=== PATIENT | female | born 1950 | race Caucasian/White ===

== ENCOUNTER 2016-09-10 13:04 | Inpatient (IN) | payer MEDICARE, OTHER ==
[~2016-09-10] VITALS: Ht 180.3 cm; Wt 150.0 kg
[~2016-09-10 13:04] MED LIST: FLUO10CA66
[2016-09-10 13:07] VITALS: Ht 180.3 cm; Wt 150.0 kg
--- NOTE | 2016-09-10 13:47 | ERA ---
ER Documentation Chief Complaint Date/Time DATE: 09/10/16 TIME: 13:46 Chief Complaint left leg swelling and redness after a cat scrath HPI The patient is a 76-year-old female, presenting to the ER because of acute left leg redness and pain after her cat scratched her yesterday. She complains of fever, vomiting, denies neck pain, chest pain, dysuria, diarrhea, abdominal pain. She denies any other injury. She does not smoke nor drink Past medical history: Asthma, depression, hypertension, osteoarthritis Past surgical history: Bilateral knee replacement ROS All systems reviewed and are negative except as per history of present illness. Medications Home Meds Reported Medications Fluoxetine Hcl* (Fluoxetine Hcl*) 20 Mg Capsule, 20 MG PO BID, CAP 09/10/16 Losartan Potassium* (Losartan Potassium*) 100 Mg Tablet, 100 MG PO DAILY, TAB 09/10/16 Amlodipine Besylate* (Norvasc*) 5 Mg Tablet, 5 MG PO DAILY, TAB 09/10/16 Chlorthalidone* (Chlorthalidone*) 25 Mg Tablet, 25 MG PO DAILY, TAB 09/10/16 Discontinued Reported Medications Fluoxetine Hcl* (Prozac*) 10 Mg Capsule 02/18/10 Allergies Allergies: Coded Allergies: Acetaminophen (Unverified Allergy, Unknown, 03/26/06) Oxycodone (Unverified Allergy, Unknown, 03/26/06) Uncoded Allergies: CHEAP METALS (Allergy, Mild, RASH, 03/26/06) PMhx/Soc History of Surgery: Yes (B KNEE REPLACEMENTS) Anesthesia Reaction: No Hx Neurological Disorder: No Hx Respiratory Disorders: Yes (ASTHMA) Hx Cardiac Disorders: No Hx Psychiatric Problems: Yes (DEPRESSION) Hx Miscellaneous Medical Probl: Yes (Osteoarthritis, HTN.) Hx Alcohol Use: Yes Hx Substance Use: No Hx Tobacco Use: No Smoking Status: Never smoker Physical Exam Vitals Vital Signs Date Time Temp Pulse Resp B/P Pulse Ox O2 Delivery O2 Flow Rate FiO2 09/10/16 13:07 100.8 104 20 129/66 99 Physical Exam Const: No acute distress. Head: Atraumatic. Eyes: Normal Conjunctiva. ENT: Normal External Ears, Nose and Mouth. Neck: Full range of motion. No meningismus. Resp: Clear to auscultation bilaterally. Cardio: Regular rate and rhythm. Abd: Soft, non distended, normal bowel sounds, non tender. Skin: No petechiae or rashes. Back: No midline or flank tenderness. Ext: Left lower extremity is erythematous, warm to touch, mild calf tenderness Neur: Awake and alert. No focal deficit Psych: Normal Mood and Affect. Result Diagram: 09/10/16 1345 09/10/16 1345 Results 24 hrs Laboratory Tests Test 09/10/16 13:45 White Blood Count 16.210^3/ul Red Blood Count 4.4310^6/ul Hemoglobin 14.8g/dl Hematocrit 43.4% Mean Corpuscular Volume 98.0fl Mean Corpuscular Hemoglobin 33.4pg Mean Corpuscular Hemoglobin Concent 34.1g/dl Red Cell Distribution Width 13.0% Platelet Count 12832^3/UL Mean Platelet Volume 9.8fl Neutrophils % 91.3% Lymphocytes % 2.8% Monocytes % 4.9% Eosinophils % 0.1% Basophils % 0.2% Nucleated Red Blood Cells % 0.0/100WBC Neutrophils # 14.810^3/ul Lymphocytes # 0.510^3/ul Monocytes # 0.810^3/ul Eosinophils # 0.010^3/ul Basophils # 0.010^3/ul Nucleated Red Blood Cells # 0.010^3/ul Prothrombin Time 13.1Sec Prothrombin Time Ratio 1.0 INR International Normalized Ratio 0.99 Activated Partial Thromboplast Time 26.4Sec Sodium Level 140mmol/L Potassium Level 3.7mmol/L Chloride Level 99mmol/L Carbon Dioxide Level 32mmol/L Anion Gap 13 Blood Urea Nitrogen 24mg/dl Creatinine 0.69mg/dl Glucose Level 140mg/dl Lactic Acid Level 2.3mmol/L Calcium Level 9.1mg/dl Total Bilirubin 0.6mg/dl Direct Bilirubin 0.00mg/dl Indirect Bilirubin 0.6mg/dl Aspartate Amino Transf (AST/SGOT) 32IU/L Alanine Aminotransferase (ALT/SGPT) 45IU/L Alkaline Phosphatase 65IU/L Troponin I < 0.012ng/ml Total Protein 6.9g/dl Albumin 4.3g/dl Globulin 2.60g/dl Albumin/Globulin Ratio 1.65 Current Medications Medications (Trade) Dose Ordered Sig/Radha Route PRN Reason Start Time Stop Time Status Last Admin Dose Admin Ibuprofen 600 mg 600 mg ONCE ONCE PO 09/10/16 14:00 09/10/16 14:01 DC 09/10/16 14:05 Azithromycin 250 ml @ 250 mls/hr ONCE ONCE IVPB 09/10/16 14:00 09/10/16 14:59 DC 09/10/16 14:10 Vancomycin HCl 250 ml @ 125 mls/hr ONCE IVPB 09/10/16 14:00 09/10/16 15:59 Sodium Chloride (NS) 4,650 ml @ 4,650 mls/hr BOLUS X1 ONCE IV 09/10/16 15:00 09/10/16 15:59 09/10/16 15:00 Procedures/MDM [place] [id number] Radiology Main Line: [phone] DIAGNOSTIC IMAGING REPORT Patient: GERARDO PEOPLES : 1950 Age: 66 Sex: F MR #: [id number] DOS: 09/10/16 1351 Ordering MD: ANTOLIN HARRINGTON MD Location: E/R Room/Bed: PROCEDURE: XR Chest. CLINICAL INDICATION: Chest pain TECHNIQUE: Single portable view of the chest was obtained COMPARISON: None FINDINGS: The heart and mediastinum are within normal limits. The lung bases are not well seen due to overlying dense soft tissue. There are mild bibasilar atelectatic changes. The lungs are otherwise clear. There is no pleural effusion or pneumothorax. RPTAT: AA IMPRESSION: Mild bibasilar atelectatic changes. .Zain Paredes MD, Date Time Electronically viewed and signed by .Zain Paredes MD, on 09/10/2016 14: 30 .S/ CC: ANTOLIN HARRINGTON MD [place] [id number] Radiology Main Line: [phone] DIAGNOSTIC IMAGING REPORT Patient: GERARDO PEOPLES : 1950 Age: 66 Sex: F [id number] [id number] DOS: 09/10/16 1352 Ordering MD: ANTOLIN HARRINGTON MD Location: E/R Room/Bed: PROCEDURE: Ultrasound of the left lower extremity venous system. CLINICAL INDICATION: Left leg pain and swelling, deep venous thrombosis TECHNIQUE: Nichols scale with and without compression, color doppler, spectral doppler of the venous system of the left lower extremity was performed. Venous augmentation maneuvers were utilized. COMPARISON: No prior studies are available for comparison. FINDINGS: Common femoral vein: Patent. Femoral vein: Patent. Popliteal vein: Patent. Calf veins: Patent. No soft tissue abnormalities are identified. IMPRESSION: No evidence of a deep vein thrombosis within the left lower extremity. RPTAT: AADD .Tariq Bernard MD, Date Time Electronically viewed and signed by .aTriq Bernard MD, MD on 09/10/2016 14:59 .B/ CC: ANTOLIN HARRINGTON MD EKG: Read by emergency physician Rate/Rhythm: Normal Sinus Rhythm 89 beats/min QRS, ST, T-waves: No ST elevation, no T inversion, nonspecific ST abnormality Impression: Abnormal EKG MEDICAL MAKING DECISION: The patient is a 66-year-old female, presenting with acute severe sepsis, acute left leg cellulitis. She was treated with normal saline 30 mL/kg IV, vancomycin IV, azithromycin IV to cover Bartonella Hensella due to cat scratches The differential diagnoses considered include but are not limited to pneumonia, cystitis, pyelonephritis Admit MDM: Patient's infectious symptoms have not stabilized and the patient is at risk of rapid decompensation. The patient will be admitted for careful hydration, antibiotic therapy, and infectious source control. Severe Sepsis criteria: Infectious source: Left leg cellulitis End organ damage indicated by: Lactate > 2.0 mmol/L Hypotension (SBP < 90 or >40 mmHG drop or MAP < 65) Acute Resp Failure (sat < 92% w/o oxygen) Country Printer > 2.0 Sepsis Management: Time of recognition of severe sepsis/septic shock:1345 hrs. Within 3 hours of recognition: Blood cultures x 2 before broad-spectrum antibiotics: Yes 30 ml/kg NS bolus completed Initial lactate 2.3 Repeat lactate pending Critical Care: Critical care time 35 minutes Emergent fluid management while maintaining close respiratory support. Provision of immediate and broad-spectrum antibiotic therapy. Simultaneous assessment for possible sources in order to direct targeted therapy. Consideration for invasive and chemical support to prevent cardiopulmonary collapse. Departure Diagnosis: Primary Impression: Severe sepsis Additional Impression: Cellulitis Condition: Stable Comments I discussed the findings with the patient. I discussed the patient with the on- call hospitalist Dr. Harp who was made aware of the lab, the treatment, the patient condition. The patient is admitted to discharge at 325 pm ANTOLIN HARRINGTON MD Sep 10, 2016 13:46
[2016-09-10] MEDS ORDERED: AZITHROMYCIN 500MG/NS (PMX) 250 ML IVPB ONE (14:00)
[2016-09-10] MEDS ORDERED: IBUPROFEN 600 MG TAB PO ONE (14:00)
[2016-09-10] MEDS ORDERED: VANCOMYCIN 1 GM (PMX) 250 ML IVPB SCH (14:00)
[2016-09-10 14:04] LABS: ADD SCAN DIFF NO
[2016-09-10 14:05] LABS: ABNORMAL IP MESSAGE 1; BASOPHILS % 0.2 % (0.0-2.0); EOSINOPHILS % 0.1 % (0.0-7.0); HEMATOCRIT 43.4 % (37.0-47.0); HEMOGLOBIN 14.8 g/dl (12.0-16.0); LYMPHOCYTES # 0.5 10^3/ul (0.8-2.9); LYMPHOCYTES % 2.8 % (15.0-51.0); MEAN CORPUSCULAR HEMOGLOBIN 33.4 pg (29.0-33.0); MEAN CORPUSCULAR HGB CONC 34.1 g/dl (32.0-37.0); MEAN PLATELET VOLUME 9.8 fl (7.4-10.4); MONOCYTE # 0.8 10^3/ul (0.3-0.9); MONOCYTES % 4.9 % (0.0-11.0); NEUTROPHIL # 14.8 10^3/ul (1.6-7.5); NEUTROPHILS % 91.3 % (39.0-77.0); PLATELET COUNT 156 10^3/UL (140-415); RED BLOOD COUNT 4.43 10^6/ul (4.20-5.40); WHITE BLOOD COUNT 16.2 10^3/ul (4.8-10.8)
[2016-09-10 14:23] LABS: ALANINE AMINOTRANSFERASE 45 IU/L (13-69); ALBUMIN 4.3 g/dl (3.3-4.9); ALBUMIN/GLOBULIN RATIO 1.65; ALKALINE PHOSPHATASE 65 IU/L (42-121); ANION GAP 13 (8-16); ASPARTATE AMINO TRANSFERASE 32 IU/L (15-46); BILIRUBIN,INDIRECT 0.6 mg/dl (0-1.1); BILIRUBIN,TOTAL 0.6 mg/dl (0.2-1.3); BLOOD UREA NITROGEN 24 mg/dl (7-20); CALCIUM 9.1 mg/dl (8.4-10.2); CARBON DIOXIDE 32 mmol/L (21-31); CHLORIDE 99 mmol/L (97-110); CREATININE 0.69 mg/dl (0.44-1.00); GLUCOSE 140 mg/dl (70-220); POTASSIUM 3.7 mmol/L (3.5-5.1); SODIUM 140 mmol/L (135-144); TOTAL PROTEIN 6.9 g/dl (6.1-8.1)
[2016-09-10 14:27] LABS: INR 0.99; PROTIME 13.1 Sec (12.2-14.2)
[2016-09-10 14:28] LABS: PARTIAL THROMBOPLASTIN TIME 26.4 Sec (25.0-35.0)
--- NOTE | 2016-09-10 14:30 | RADRPT ---
PROCEDURE: XR Chest. CLINICAL INDICATION: Chest pain TECHNIQUE: Single portable view of the chest was obtained COMPARISON: None FINDINGS: The heart and mediastinum are within normal limits. The lung bases are not well seen due to overlying dense soft tissue. There are mild bibasilar atelectatic changes. The lungs are otherwise clear. There is no pleural effusion or pneumothorax. RPTAT: AA IMPRESSION: Mild bibasilar atelectatic changes. .Zain Paredes MD, MD Date Time Electronically viewed and signed by .Zain Paredes MD, on 09/10/2016 14:30 .S/
[2016-09-10 14:35] LABS: TROPONIN-I < 0.012 ng/ml (0.00-0.12)
[2016-09-10] MEDS ORDERED: CHLO25TA13 PO (14:59)
--- NOTE | 2016-09-10 14:59 | RADRPT ---
PROCEDURE: Ultrasound of the left lower extremity venous system. CLINICAL INDICATION: Left leg pain and swelling, deep venous thrombosis TECHNIQUE: Nichols scale with and without compression, color doppler, spectral doppler of the venous system of the left lower extremity was performed. Venous augmentation maneuvers were utilized. COMPARISON: No prior studies are available for comparison. FINDINGS: Common femoral vein: Patent. Femoral vein: Patent. Popliteal vein: Patent. Calf veins: Patent. No soft tissue abnormalities are identified. IMPRESSION: No evidence of a deep vein thrombosis within the left lower extremity. RPTAT: AADD .Tariq Bernard MD, MD Date Time Electronically viewed and signed by .Tariq Bernard MD, on 09/10/2016 14:59 .B/
[2016-09-10] MEDS ORDERED: SOD CHLORIDE 0.9% IV ONE (15:00)
[2016-09-10] MEDS ORDERED: AMLO5TAB4 PO (15:02)
[2016-09-10] MEDS ORDERED: LOSA100T7 PO (15:06)
[2016-09-10] MEDS ORDERED: FLUO20CA22 PO (15:07)
[2016-09-10 15:53] VITALS: TEMP 98.7
[2016-09-10 16:06] LABS: ADD UMIC NO; UR BILIRUBIN (Dip) NEGATIVE (NEGATIVE); UR BLOOD (Dip) NEGATIVE (NEGATIVE); UR CLARITY CLEAR (CLEAR); UR COLOR LT. YELLOW (YELLOW); UR GLUCOSE (Dip) NEGATIVE (NEGATIVE); UR KETONES (Dip) NEGATIVE (NEGATIVE); UR LEUKOCYTE ESTERASE (Dip) NEGATIVE (NEGATIVE); UR NITRITE (Dip) NEGATIVE (NEGATIVE); UR TOTAL PROTEIN (Dip) NEGATIVE (NEGATIVE); UR UROBILINOGEN (Dip) 0.2 E.U./dL (0.1-1.0)
[2016-09-10 16:51] VITALS: BP 133/79; PULSE 88; RESP 18
[2016-09-10] MEDS ORDERED: VANCOMYCIN IV PER PHARMACY XX SCH (18:00)
[2016-09-10] MEDS ORDERED: morphine 4 MG/ML VIAL IV PRN (18:00)
[2016-09-10] MEDS ORDERED: ONDANSETRON 4 MG INJ IV PRN (18:00)
[2016-09-10] MEDS: LEVOFLOXACIN 750MG/D5W (PMX) 150 ML IVPB SCH (19:07)
[2016-09-10 19:38] VITALS: BP 133/65; RESP 20
--- NOTE | 2016-09-10 20:08 | HP ---
DATE OF ADMISSION: 09/10/2016 PRESENTING COMPLAINT: Left lower extremity pain, redness and swelling. HISTORY OF PRESENTING COMPLAINT: A 66-year-old female with a past medical history only of high bloo d pressure and depression, as well as morbid obesity, who came to the emergency room today with jemma re redness and pain of her left leg. Symptoms started earlier today and were associated with fever, chills, nausea and vomiting. The patient reports her cat had given her love bites the day prior an d she woke up this morning with swelling and redness in her left leg. She has had similar in the [facility] after she underwent bilateral hip and knee replacements, but not since. She does not have ALLERG IES TO CATS. PAST MEDICAL HISTORY: High blood pressure, depression. PAST SURGICAL HISTORY: 1. Bilateral knee replacement. 2. Umbilical hernia repair. 3. D and C. 4. History of colonoscopy ____. She requires a repeat colonoscopy next year, after 5 years. ALLERGIES: 1. ACETAMINOPHEN. 2. CHEAP METALS. 3. OXYCODONE. HOME MEDICATIONS: List reviewed and reconciled. REVIEW OF SYSTEMS: A 12-point review of system was done. Pertinent findings are as noted in HPI. SOCIAL HISTORY: Denies tobacco use currently, quit smoking more than 25 years ago. Drinks 3 shots of martini every night. Denies illicit drug use. FAMILY HISTORY: Noncontributory. PHYSICAL EXAMINATION: VITAL SIGNS: Temperature 100.8 when she came in, now 98.6, pulse 80, respirations 18, blood pressur e 133/79, saturations 93% on room air. GENERAL: Obese female, alert and oriented, in no distress. HEENT: Head is normocephalic. Pupils equal and reactive. Mucous membranes are moist. Posterior p harynx clear of erythema and exudate. NECK: Supple, nontender. CHEST: Clear to auscultation. CARDIOVASCULAR: S1, S2, no murmurs. ABDOMEN: Obese, soft, nontender, nondistended, normoactive bowel sounds. EXTREMITIES: The patient does have erythema in the left leg, extending from the foot to just below her knee on the left leg with 4 bite kaplan just in the ____. The left leg is obviously more erythem atous and swollen than the right. Right lower extremity has no edema. NEUROLOGIC: There are no focal deficits. Patient is able to move all 4 extremities without deficit s. SKIN: Findings are summarized above. PSYCHIATRIC: She was calm, cooperative with exam. LABORATORY VALUES: Leukocytosis of 16,000 and a mild hypochromia, neutrophilia without bandemia. Chemistry: She has lactic acidosis of 2.3, it has improved and the rest of the chemistry was unrema rkable. Coag profile was normal. Urinalysis was normal. IMAGING: Chest x-ray showed mild bibasilar atelectasis and lower extremity Dopplers did not show a DVT in the left lower extremity. ASSESSMENT: A 66-year-old female who presented to the emergency room with fever, nausea, vomiting, left lower extremity redness and pain ____ 1. Left lower extremity cellulitis associated with cat bites. 2. Sepsis secondary to #1. 3. Hypertension with good control. 4. Morbid obesity with BMI of 46.1. 5. Mild lactic acidosis secondary to sepsis. 6. Chronic depression, stable on fluoxetine. PLAN: Inpatient antibiotic regimen, ID consult, pain control, antiemetics and antipyretics, blood c ultures and further intervention per clinical course. Discussed plan of care with the patient. Carmelita smooth dwayne answered her questions. Dictated By: KASIA RIVERA MD, BA/EDWARD Conf#: [id number] DID#: [id number]
[2016-09-10] MEDS: VANCOMYCIN 2 GM in SOD CHLORIDE 0.9% 500 ML IVPB SCH (20:29)
[2016-09-10] MEDS: DOCUSATE SODIUM 100 MG CAP PO SCH (20:29)
[2016-09-10] MEDS: FAMOTIDINE 20 MG TAB PO SCH (20:29)
[2016-09-10] MEDS: ACETAMINOPHEN 325 MG TAB PO PRN (21:32)
--- NOTE | 2016-09-10 22:07 | CONS ---
DATE OF ADMISSION: 09/10/2016 DATE OF CONSULTATION: 09/10/2016 INFECTIOUS DISEASE CONSULTATION REASON FOR CONSULTATION: Antibiotic management. HISTORY OF PRESENT ILLNESS: Lia Corona is a 66-year-old female who comes in with lower extremity p ain, redness and swelling secondary to a cat bite. The patient's problems include: 1. Hypertension. 2. Depression. 3. Morbid obesity. She came to the emergency room with severe redness and pain in her left leg. Her symptoms started e arlier in the day associated with fever, chills, nausea and vomiting. She reports that her cat had given her "love bites" the day before, and she woke up this morning with swelling and redness in her leg. She has a history of bilateral hip and knee replacements. SHE DOES NOT HAVE AN ALLERGY TO CA TS. PAST MEDICAL HISTORY: As outlined. PAST SURGICAL HISTORY: Bilateral knee replacements, umbilical hernia repair, D and C, history of co lonoscopy. ALLERGIES: ACETAMINOPHEN, OXYCODONE, CHEAP METALS. FAMILY HISTORY: Noncontributory. SOCIAL HISTORY: She does not smoke; she quit smoking 25 years ago. She drinks 3 shots of martini e very night. MEDICATIONS: Per chart. REVIEW OF SYSTEMS: Noncontributory. PHYSICAL EXAMINATION: GENERAL: The patient is a morbidly obese female, who is alert, responsive and in no acute distress. VITAL SIGNS: T-max 100.8. SKIN: Without generalized rash. HEENT: Within normal limits. NECK: Supple. LYMPH NODES: None palpable. CHEST: Decreased breath sounds at the bases. HEART: Without murmur or gallop. ABDOMEN: Soft, obese, nontender, nondistended, without organosplenomegaly or masses. EXTREMITIES: Without cyanosis or clubbing. She has erythema of the left leg, extending from the fo ot to just below the knee. She has 4 bites. The left leg is more erythematous and swollen than the right. RECTAL AND GENITAL: Deferred. NEUROLOGIC: No focal neurological abnormalities. ANCILLARY LABORATORY DATA: On admission, her white count was 16.2, H and H of 14.8 and 43.4, platel et count of 156,000. BUN and creatinine are 24 and 0.69. Urine was negative. X-ray of the chest s howed mild bibasilar atelectatic changes. Study for deep vein thrombophlebitis was negative. IMPRESSION AND PLAN: The patient was started on vancomycin and Levaquin. We probably can put her o n Unasyn 3 grams q.6, but for the time being I am going to keep her on vancomycin and Levaquin. I w ill dictate my findings to Dr. White. Dictated By: JONATHAN JEAN MD, JD/EDWARD Conf#: [id number] DID#: [id number]
[2016-09-11] MEDS: ACETAMINOPHEN 325 MG TAB PO PRN ×2 (05:27→16:10)
[2016-09-11 05:47] LABS: ADD SCAN DIFF NO
[2016-09-11 05:50] LABS: BASOPHILS % 0.2 % (0.0-2.0); EOSINOPHILS # 0.1 10^3/ul (0.0-0.5); EOSINOPHILS % 0.4 % (0.0-7.0); HEMATOCRIT 38.7 % (37.0-47.0); HEMOGLOBIN 12.8 g/dl (12.0-16.0); LYMPHOCYTES # 0.9 10^3/ul (0.8-2.9); LYMPHOCYTES % 7.3 % (15.0-51.0); MEAN CORPUSCULAR HEMOGLOBIN 33.2 pg (29.0-33.0); MEAN CORPUSCULAR HGB CONC 33.1 g/dl (32.0-37.0); MEAN CORPUSCULAR VOLUME 100.3 fl (82.0-101.0); MEAN PLATELET VOLUME 9.7 fl (7.4-10.4); MONOCYTE # 0.7 10^3/ul (0.3-0.9); MONOCYTES % 5.8 % (0.0-11.0); NEUTROPHIL # 10.7 10^3/ul (1.6-7.5); NEUTROPHILS % 86.1 % (39.0-77.0); NUCLEATED RED BLOOD CELLS% 0.3 /100WBC (0.0-0.0); PLATELET COUNT 135 10^3/UL (140-415); RED BLOOD COUNT 3.86 10^6/ul (4.20-5.40); RED CELL DISTRIBUTION WIDTH 13.2 % (11.5-14.5); WHITE BLOOD COUNT 12.5 10^3/ul (4.8-10.8)
[2016-09-11 06:13] LABS: INR 1.18; PROTIME 15.1 Sec (12.2-14.2); PT RATIO 1.2
[2016-09-11 06:46] LABS: CALCIUM 8.8 mg/dl (8.4-10.2); CHOL/HDL RATIO 2.6 RATIO; CREATININE 0.61 mg/dl (0.44-1.00); MAGNESIUM 1.9 mg/dl (1.7-2.5); POTASSIUM 3.8 mmol/L (3.5-5.1)
[2016-09-11 07:11] LABS: THYROID STIMULATING HORMONE 1.66 MIU/L (0.465-4.680)
[2016-09-11 07:47] VITALS: BP 150/77; RESP 20
[2016-09-11] MEDS: DOCUSATE SODIUM 100 MG CAP PO SCH ×2 (08:36→21:23)
[2016-09-11] MEDS: VANCOMYCIN 2 GM in SOD CHLORIDE 0.9% 500 ML IVPB SCH ×2 (08:36→21:23)
[2016-09-11] MEDS: FAMOTIDINE 20 MG TAB PO SCH ×2 (08:36→21:23)
[2016-09-11] MEDS: ENOXAPARIN 40 MG/0.4 ML SYG SC SCH (08:53)
[2016-09-11] MEDS ORDERED: VITAMIN A & D 5 GM OINT PACKET TOP ONE (10:55)
--- NOTE | 2016-09-11 13:47 | PN ---
DATE: 09/11/2016 INFECTIOUS DISEASE PROGRESS NOTE SUBJECTIVE: No acute changes. The patient is alert, looks comfortable. She had low grade fevers y esterday, currently afebrile. WBC today 12.5 with platelets 135, neutrophils 86.1, BUN 15, creatini ne 0.61. MICROBIOLOGY: Blood culture growing gram-negative rods. Urine culture was consistent with contamin ant. ANTIMICROBIALS: Patient is on: 1. Vancomycin. 2. Levaquin. PHYSICAL EXAMINATION: GENERAL: This is a morbidly obese elderly woman who is awake, in no distress. HEENT: Head atraumatic, normocephalic. Sclerae anicteric. Buccal mucosa pink. NECK: Supple. CHEST: Rise symmetrical. Breath sounds clear. HEART: S1, S2. ABDOMEN: Soft, bowel tones present. EXTREMITIES: With bilateral lower extremities edema, left lower extremity erythema, slightly improve d. ASSESSMENT: 1. Sepsis with fever, leukocytosis, tachycardia on admission. 2. Gram-negative tita bacteremia. 3. Left lower extremity cellulitis. 4. Morbid obesity. 5. History of bilateral knee replacement. PLAN: The patient remains stable. Erythema is improving. White blood cell count tracing down. We are going to await for final cultures and repeat blood cultures. Continue left lower extremity naty vation. Dictated By: ROSETTA HOLLIS TYPE COPY EXAMINER for JONATHAN LEE/EDWARD Conf#: [id number] DID#: [id number]
[2016-09-11] MEDS ORDERED: PROMETHAZINE/CODEINE 5ML CUP PO PRN (16:00)
[2016-09-11] MEDS: GUAIFENESIN/CODEINE 5ML CUP PO PRN (16:12)
[2016-09-11] MEDS: AMLODIPINE 5 MG TAB PO SCH (17:51)
[2016-09-11] MEDS: CHLORTHALIDONE 25 MG TAB PO SCH (17:51)
[2016-09-11] MEDS: LOSARTAN 50 MG TAB PO SCH (17:51)
[2016-09-11] MEDS: LEVOFLOXACIN 750MG/D5W (PMX) 150 ML IVPB SCH (17:54)
[2016-09-11 19:20] VITALS: BP 145/63; RESP 18
--- NOTE | 2016-09-11 21:07 | PN ---
Date/Time of Note Date/Time of Note DATE: 09/11/16 TIME: 21:05 Assessment/Plan VTE Prophylaxis VTE Prophylaxis Intervention: LMWH Lines/Catheters IV Catheter Type (from [facility]): Peripheral IV Urinary Cath still in place: No Assessment/Plan Assessment/Plan 1. Left lower extremity cellulitis associated with cat bites. 2. Sepsis secondary to gram negative bacteremia, blood cx gre gram neg rods 3. Hypertension with good control. 4. Morbid obesity with BMI of 46.1. 5. Mild lactic acidosis secondary to sepsis. 6. Chronic depression, stable on fluoxetine. continuve IV abx ID following, pain control Lovenox for DVT prophylaxis Subjective 24 Hr Interval Summary Free Text/Dictation blood cx grew gram neg rods, BP stable, afebrile, Exam/Review of Systems Vital Signs Vitals Vital Signs Date Time Temp Pulse Resp B/P Pulse Ox O2 Delivery O2 Flow Rate FiO2 09/11/16 19:20 100.0 86 18 145/63 92 09/10/16 16:51 Room Air Intake and Output 09/10/16 09/10/16 09/11/16 15:00 23:00 07:00 Intake Total 3520 ml 1300 ml Balance 3520 ml 1300 ml Exam GENERAL: This is a morbidly obese elderly woman who is awake, in no distress. HEENT: Head atraumatic, normocephalic. Sclerae anicteric. Buccal mucosa pink. NECK: Supple. CHEST: Rise symmetrical. Breath sounds clear. HEART: S1, S2. ABDOMEN: Soft, bowel tones present. EXTREMITIES: With bilateral lower extremities edema, left lower extremity erythema, slightly improved. Results Result Diagram: 09/11/1620 09/11/16 0520 Results 24 hrs Laboratory Tests Test 09/11/16 05:20 09/11/16 17:00 White Blood Count 12.5 #H Red Blood Count 3.86 L Hemoglobin 12.8 Hematocrit 38.7 Mean Corpuscular Volume 100.3 Mean Corpuscular Hemoglobin 33.2 H Mean Corpuscular Hemoglobin Concent 33.1 Red Cell Distribution Width 13.2 Platelet Count 135 L Mean Platelet Volume 9.7 Neutrophils % 86.1 H Lymphocytes % 7.3 L Monocytes % 5.8 Eosinophils % 0.4 Basophils % 0.2 Nucleated Red Blood Cells % 0.3 H Neutrophils # 10.7 H Lymphocytes # 0.9 Monocytes # 0.7 Eosinophils # 0.1 Basophils # 0.0 Nucleated Red Blood Cells # 0.0 Prothrombin Time 15.1 H Prothrombin Time Ratio 1.2 INR International Normalized Ratio 1.18 Activated Partial Thromboplast Time 33.0 Sodium Level 140 Potassium Level 3.8 Chloride Level 103 Carbon Dioxide Level 31 Anion Gap 10 Blood Urea Nitrogen 15 # Creatinine 0.61 Glucose Level 121 Hemoglobin A1c 6.1 H Calcium Level 8.8 Magnesium Level 1.9 Triglycerides Level 69 Cholesterol Level 156 LDL Cholesterol, Calculated 84 HDL Cholesterol 58 Cholesterol/HDL Ratio 2.6 Thyroid Stimulating Hormone (TSH) 1.660 Vancomycin Level Trough 13.3 Medications Medications Current Medications Levofloxacin/ Dextrose (Levaquin 750 Mg/ D5W 150 ml (Pmx)) 150 ml @ 100 mls/hr Q24H IVPB Last administered on 09/11/16 17:54; Admin Dose 100 MLS/HR; Start at 18:00 Docusate Sodium (Colace) 100 mg BID PO Last administered on 09/11/16 08:36; Admin Dose 100 MG; Start 09/10/16 at 21:00 Enoxaparin Sodium (Lovenox) 40 mg DAILY SC Last administered on 09/11/16 08:53 ; Admin Dose 40 MG; Start 09/11/16 at 09:00 Famotidine (Pepcid) 20 mg BID PO Last administered on 09/11/16 08:36; Admin Dose 20 MG; Start 09/10/16 at 21:00 Ondansetron HCl (Zofran Inj) 4 mg Q6H PRN IV NAUSEA AND/OR VOMITING; Start 03/17 at 18:00 Morphine Sulfate 4 mg 4 mg Q4H PRN IV pain; Start 09/10/16 at 18:00 Vancomycin HCl/ Sodium Chloride (Vancocin/NS) 500 ml @ 125 mls/hr Q12H IVPB Last administered on 09/11/16 08:36; Admin Dose 125 MLS/HR; Start 09/10/16 at 20:00 Acetaminophen (Tylenol Tab) 650 mg Q6H PRN PO PAIN AND OR ELEVATED TEMP Last administered on 09/11/16 16:10; Admin Dose 650 MG; Start 09/10/16 at 21:00 Amlodipine Besylate (Norvasc) 5 mg DAILY PO Last administered on 09/11/16 17: 51; Admin Dose 5 MG; Start 09/11/16 at 17:00 Chlorthalidone (Hygroton) 25 mg DAILY PO Last administered on 09/11/16 17:51; Admin Dose 25 MG; Start 09/11/16 at 17:00 Fluoxetine HCl (Prozac) 20 mg BID PO ; Start 09/11/16 at 21:00 Losartan Potassium (Cozaar) 100 mg DAILY PO Last administered on 09/11/16 17: 51; Admin Dose 100 MG; Start 09/11/16 at 17:00 Guaifenesin/ Codeine Phosphate (Robitussin Ac Liquid Cup) 5 ml Q6H PRN PO COUGH Last administered on 09/11/16 16:12; Admin Dose 5 ML; Start 09/11/16 at 16:30 PA AUGUST MD Sep 11, 2016 21:07
[2016-09-11] MEDS: FLUOXETINE 20 MG CAP PO SCH (21:23)
[2016-09-12] MEDS: GUAIFENESIN/CODEINE 5ML CUP PO PRN (02:38)
[2016-09-12] MEDS: ACETAMINOPHEN 325 MG TAB PO PRN (05:20)
[2016-09-12 05:53] LABS: ADD SCAN DIFF NO
[2016-09-12 05:59] LABS: BASOPHILS % 0.3 % (0.0-2.0); EOSINOPHILS # 0.1 10^3/ul (0.0-0.5); EOSINOPHILS % 2.2 % (0.0-7.0); HEMATOCRIT 39.3 % (37.0-47.0); HEMOGLOBIN 12.8 g/dl (12.0-16.0); LYMPHOCYTES % 16.6 % (15.0-51.0); MEAN CORPUSCULAR HEMOGLOBIN 32.4 pg (29.0-33.0); MEAN CORPUSCULAR HGB CONC 32.6 g/dl (32.0-37.0); MEAN CORPUSCULAR VOLUME 99.5 fl (82.0-101.0); MEAN PLATELET VOLUME 9.8 fl (7.4-10.4); MONOCYTE # 0.5 10^3/ul (0.3-0.9); MONOCYTES % 7.8 % (0.0-11.0); NEUTROPHIL # 4.4 10^3/ul (1.6-7.5); NEUTROPHILS % 72.6 % (39.0-77.0); PLATELET COUNT 141 10^3/UL (140-415); RED BLOOD COUNT 3.95 10^6/ul (4.20-5.40)
[2016-09-12 06:45] LABS: CREATININE 0.67 mg/dl (0.44-1.00); POTASSIUM 3.8 mmol/L (3.5-5.1)
[2016-09-12 07:33] VITALS: BP 145/69; RESP 20
[2016-09-12] MEDS: VANCOMYCIN 2 GM in SOD CHLORIDE 0.9% 500 ML IVPB SCH ×2 (08:27→20:57)
[2016-09-12] MEDS: FLUOXETINE 20 MG CAP PO SCH ×2 (08:44→20:58)
[2016-09-12] MEDS: AMLODIPINE 5 MG TAB PO SCH (08:44)
[2016-09-12] MEDS: FAMOTIDINE 20 MG TAB PO SCH ×2 (08:44→20:58)
[2016-09-12] MEDS: DOCUSATE SODIUM 100 MG CAP PO SCH ×2 (08:45→21:00)
[2016-09-12] MEDS: LOSARTAN 50 MG TAB PO SCH (08:46)
[2016-09-12] MEDS: ENOXAPARIN 40 MG/0.4 ML SYG SC SCH (09:03)
[2016-09-12] MEDS: CHLORTHALIDONE 25 MG TAB PO SCH (12:30)
[2016-09-12 12:59] VITALS: BP 133/64; PULSE 76
--- NOTE | 2016-09-12 14:43 | CONS ---
Date/Time of Note Date/Time of Note DATE: 09/12/16 TIME: 14:42 Assessment/Plan Assessment/Plan Chief Complaint/Hosp Course SUBJECTIVE: No acute changes. The patient is alert, looks comfortable. No fevers MICROBIOLOGY: Blood culture growing gram-negative rods. ANTIMICROBIALS: 1. Vancomycin. 2. Levaquin. PHYSICAL EXAMINATION: GENERAL: This is a morbidly obese elderly woman who is awake, in no distress. HEENT: Head atraumatic, normocephalic. Sclerae anicteric. Buccal mucosa pink. NECK: Supple. CHEST: Rise symmetrical. Breath sounds clear. HEART: S1, S2. ABDOMEN: Soft, bowel tones present. EXTREMITIES: With bilateral lower extremities edema, left lower extremity erythema, improved. ASSESSMENT: 1. Sepsis with fever, leukocytosis, tachycardia on admission. 2. Gram-negative tita bacteremia. 3. Left lower extremity cellulitis. 4. Morbid obesity. 5. History of bilateral knee replacement. PLAN: Improving. White blood cell count tracing down. Continue abx, await for final and repeat bld cx, keep LLE elevated DW pt Problems: Consultation Date/Type/Reason Admit Date/Time Sep 10, 2016 at 15:26 Initial Consult Date Type of Consultation: id Exam/Review of Systems Vital Signs Vitals Vital Signs Date Time Temp Pulse Resp B/P Pulse Ox O2 Delivery O2 Flow Rate FiO2 09/12/16 12:59 76 133/64 96 09/12/16 07:33 98.9 20 09/10/16 16:51 Room Air Intake and Output 09/11/16 09/11/16 09/12/16 15:00 23:00 07:00 Intake Total 1850 ml 900 ml Output Total 0 ml Balance 1850 ml 900 ml Results Result Diagram: 09/12/16 0520 09/12/16 0520 Results 24 hrs Laboratory Tests Test 09/11/16 17:00 09/12/16 05:20 Vancomycin Level Trough 13.3 White Blood Count 6.0 # Red Blood Count 3.95 L Hemoglobin 12.8 Hematocrit 39.3 Mean Corpuscular Volume 99.5 Mean Corpuscular Hemoglobin 32.4 Mean Corpuscular Hemoglobin Concent 32.6 Red Cell Distribution Width 13.0 Platelet Count 141 Mean Platelet Volume 9.8 Neutrophils % 72.6 Lymphocytes % 16.6 Monocytes % 7.8 Eosinophils % 2.2 Basophils % 0.3 Nucleated Red Blood Cells % 0.0 Neutrophils # 4.4 Lymphocytes # 1.0 Monocytes # 0.5 Eosinophils # 0.1 Basophils # 0.0 Nucleated Red Blood Cells # 0.0 Sodium Level 141 Potassium Level 3.8 Chloride Level 104 Carbon Dioxide Level 31 Anion Gap 10 Blood Urea Nitrogen 10 Creatinine 0.67 Glucose Level 127 Calcium Level 9.0 Medications Medications Current Medications Levofloxacin/ Dextrose (Levaquin 750 Mg/ D5W 150 ml (Pmx)) 150 ml @ 100 mls/hr Q24H IVPB Last administered on 09/11/16 17:54; Admin Dose 100 MLS/HR; Start at 18:00 Docusate Sodium (Colace) 100 mg BID PO Last administered on 09/12/16 08:45; Admin Dose 100 MG; Start 09/10/16 at 21:00 Enoxaparin Sodium (Lovenox) 40 mg DAILY SC Last administered on 09/12/16 09:03 ; Admin Dose 40 MG; Start 09/11/16 at 09:00 Famotidine (Pepcid) 20 mg BID PO Last administered on 09/12/16 08:44; Admin Dose 20 MG; Start 09/10/16 at 21:00 Ondansetron HCl (Zofran Inj) 4 mg Q6H PRN IV NAUSEA AND/OR VOMITING; Start 03/17 at 18:00 Morphine Sulfate 4 mg 4 mg Q4H PRN IV pain; Start 09/10/16 at 18:00 Vancomycin HCl/ Sodium Chloride (Vancocin/NS) 500 ml @ 125 mls/hr Q12H IVPB Last administered on 09/12/16 08:27; Admin Dose 125 MLS/HR; Start 09/10/16 at 20:00 Acetaminophen (Tylenol Tab) 650 mg Q6H PRN PO PAIN AND OR ELEVATED TEMP Last administered on 09/12/16 05:20; Admin Dose 650 MG; Start 09/10/16 at 21:00 Amlodipine Besylate (Norvasc) 5 mg DAILY PO Last administered on 09/12/16 08: 44; Admin Dose 5 MG; Start 09/11/16 at 17:00 Chlorthalidone (Hygroton) 25 mg DAILY PO Last administered on 09/11/16 17:51; Admin Dose 25 MG; Start 09/11/16 at 17:00 Fluoxetine HCl (Prozac) 20 mg BID PO Last administered on 09/12/16 08:44; Admin Dose 20 MG; Start 09/11/16 at 21:00 Losartan Potassium (Cozaar) 100 mg DAILY PO Last administered on 09/12/16 08: 46; Admin Dose 100 MG; Start 09/11/16 at 17:00 Guaifenesin/ Codeine Phosphate (Robitussin Ac Liquid Cup) 5 ml Q6H PRN PO COUGH Last administered on 09/12/16 02:38; Admin Dose 5 ML; Start 09/11/16 at 16:30 ROSETTA HOLLIS NP Sep 12, 2016 14:43
--- NOTE | 2016-09-12 17:47 | PN ---
Date/Time of Note Date/Time of Note DATE: 09/12/16 TIME: 17:37 Assessment/Plan VTE Prophylaxis VTE Prophylaxis Intervention: SCD's Lines/Catheters IV Catheter Type (from Nrsg): Saline Lock Urinary Cath still in place: No Assessment/Plan Assessment/Plan 66 yo female with: 1. Left lower extremity cellulitis associated with cat bites: patient's LLE much better and at least 50% improvement since yesterday per patient and ID On Vanco and Levaquin while awaiting final blood cx Pain control Discussed with ID 2. Sepsis secondary to gram negative bacteremia, blood cx with gram neg rods, sensitivity still pending Continue current abx per ID 3. Hypertension. Well controlled for now Continue current meds 4. Morbid obesity with BMI of 46.1. 5. Mild lactic acidosis secondary to sepsis. Resolved 6. Chronic depression, stable on fluoxetine. Prophylaxis: Lovenox for DVT prophylaxis Disposition: d/c plan in 24 to 48 hrs for Home, hopefully with po abx Subjective 24 Hr Interval Summary Free Text/Dictation Patient feels better today Less pain and swelling LLE No fevers and WBC down Exam/Review of Systems Vital Signs Vitals Vital Signs Date Time Temp Pulse Resp B/P Pulse Ox O2 Delivery O2 Flow Rate FiO2 09/12/16 12:59 76 133/64 96 09/12/16 07:33 98.9 20 09/10/16 16:51 Room Air Intake and Output 09/11/16 09/11/16 09/12/16 15:00 23:00 07:00 Intake Total 1850 ml 900 ml Output Total 0 ml Balance 1850 ml 900 ml Exam Constitutional: alert, obese, oriented, well developed Respiratory: clear to auscultation, normal air movement Cardiovascular: nl pulses, regular rate and rhythm Gastrointestinal: non-tender, soft Musculoskeletal: nl gait and stance, swelling (LLE edema, erythema improving ) Extremities: normal pulses Neurological: EXCHANGE UNDERWRITING CONSULTANT II-XII intact, nl mental status, nl speech, nl strength Results Result Diagram: 09/12/16 0520 09/12/16 0520 Results 24 hrs Laboratory Tests Test 09/12/16 05:20 White Blood Count 6.0 # Red Blood Count 3.95 L Hemoglobin 12.8 Hematocrit 39.3 Mean Corpuscular Volume 99.5 Mean Corpuscular Hemoglobin 32.4 Mean Corpuscular Hemoglobin Concent 32.6 Red Cell Distribution Width 13.0 Platelet Count 141 Mean Platelet Volume 9.8 Neutrophils % 72.6 Lymphocytes % 16.6 Monocytes % 7.8 Eosinophils % 2.2 Basophils % 0.3 Nucleated Red Blood Cells % 0.0 Neutrophils # 4.4 Lymphocytes # 1.0 Monocytes # 0.5 Eosinophils # 0.1 Basophils # 0.0 Nucleated Red Blood Cells # 0.0 Sodium Level 141 Potassium Level 3.8 Chloride Level 104 Carbon Dioxide Level 31 Anion Gap 10 Blood Urea Nitrogen 10 Creatinine 0.67 Glucose Level 127 Calcium Level 9.0 Medications Medications Current Medications Levofloxacin/ Dextrose (Levaquin 750 Mg/ D5W 150 ml (Pmx)) 150 ml @ 100 mls/hr Q24H IVPB Last administered on 09/11/16 17:54; Admin Dose 100 MLS/HR; Start at 18:00 Docusate Sodium (Colace) 100 mg BID PO Last administered on 09/12/16 08:45; Admin Dose 100 MG; Start 09/10/16 at 21:00 Enoxaparin Sodium (Lovenox) 40 mg DAILY SC Last administered on 09/12/16 09:03 ; Admin Dose 40 MG; Start 09/11/16 at 09:00 Famotidine (Pepcid) 20 mg BID PO Last administered on 09/12/16 08:44; Admin Dose 20 MG; Start 09/10/16 at 21:00 Ondansetron HCl (Zofran Inj) 4 mg Q6H PRN IV NAUSEA AND/OR VOMITING; Start 03/17 at 18:00 Morphine Sulfate 4 mg 4 mg Q4H PRN IV pain; Start 09/10/16 at 18:00 Vancomycin HCl/ Sodium Chloride (Vancocin/NS) 500 ml @ 125 mls/hr Q12H IVPB Last administered on 09/12/16 08:27; Admin Dose 125 MLS/HR; Start 09/10/16 at 20:00 Acetaminophen (Tylenol Tab) 650 mg Q6H PRN PO PAIN AND OR ELEVATED TEMP Last administered on 09/12/16 05:20; Admin Dose 650 MG; Start 09/10/16 at 21:00 Amlodipine Besylate (Norvasc) 5 mg DAILY PO Last administered on 09/12/16 08: 44; Admin Dose 5 MG; Start 09/11/16 at 17:00 Chlorthalidone (Hygroton) 25 mg DAILY PO Last administered on 09/11/16 17:51; Admin Dose 25 MG; Start 09/11/16 at 17:00 Fluoxetine HCl (Prozac) 20 mg BID PO Last administered on 09/12/16 08:44; Admin Dose 20 MG; Start 09/11/16 at 21:00 Losartan Potassium (Cozaar) 100 mg DAILY PO Last administered on 09/12/16 08: 46; Admin Dose 100 MG; Start 09/11/16 at 17:00 Guaifenesin/ Codeine Phosphate (Robitussin Ac Liquid Cup) 5 ml Q6H PRN PO COUGH Last administered on 09/12/16 02:38; Admin Dose 5 ML; Start 09/11/16 at 16:30 DANI HAYS Sep 12, 2016 17:47
[2016-09-12] MEDS: LEVOFLOXACIN 750MG/D5W (PMX) 150 ML IVPB SCH (18:04)
[2016-09-12 20:36] VITALS: BP 132/67; RESP 18
[2016-09-13 05:43] LABS: ADD SCAN DIFF NO
[2016-09-13 05:47] LABS: BASOPHILS % 0.5 % (0.0-2.0); EOSINOPHILS # 0.3 10^3/ul (0.0-0.5); EOSINOPHILS % 4.3 % (0.0-7.0); HEMATOCRIT 41.5 % (37.0-47.0); HEMOGLOBIN 13.2 g/dl (12.0-16.0); LYMPHOCYTES # 1.4 10^3/ul (0.8-2.9); LYMPHOCYTES % 22.6 % (15.0-51.0); MEAN CORPUSCULAR HEMOGLOBIN 32.6 pg (29.0-33.0); MEAN CORPUSCULAR HGB CONC 31.8 g/dl (32.0-37.0); MEAN CORPUSCULAR VOLUME 102.5 fl (82.0-101.0); MEAN PLATELET VOLUME 9.4 fl (7.4-10.4); MONOCYTE # 0.6 10^3/ul (0.3-0.9); MONOCYTES % 9.9 % (0.0-11.0); NEUTROPHIL # 3.8 10^3/ul (1.6-7.5); NEUTROPHILS % 62.2 % (39.0-77.0); PLATELET COUNT 146 10^3/UL (140-415); RED BLOOD COUNT 4.05 10^6/ul (4.20-5.40); RED CELL DISTRIBUTION WIDTH 13.1 % (11.5-14.5); WHITE BLOOD COUNT 6.1 10^3/ul (4.8-10.8)
[2016-09-13 06:20] LABS: PHOSPHORUS 4.9 mg/dl (2.5-4.9)
[2016-09-13 06:24] LABS: CALCIUM 9.1 mg/dl (8.4-10.2); CREATININE 0.8 mg/dl (0.44-1.00); POTASSIUM 4.3 mmol/L (3.5-5.1)
[2016-09-13 08:15] VITALS: BP 138/65; RESP 18
[2016-09-13] MEDS: ACETAMINOPHEN 325 MG TAB PO PRN (08:43)
[2016-09-13] MEDS: VANCOMYCIN 2 GM in SOD CHLORIDE 0.9% 500 ML IVPB SCH ×2 (08:43→20:57)
[2016-09-13] MEDS: DOCUSATE SODIUM 100 MG CAP PO SCH ×2 (09:00→21:00)
[2016-09-13] MEDS: CHLORTHALIDONE 25 MG TAB PO SCH (09:00)
[2016-09-13] MEDS: FAMOTIDINE 20 MG TAB PO SCH ×2 (09:40→20:58)
[2016-09-13] MEDS: FLUOXETINE 20 MG CAP PO SCH ×2 (09:40→20:58)
[2016-09-13] MEDS: LOSARTAN 50 MG TAB PO SCH (09:40)
[2016-09-13] MEDS: AMLODIPINE 5 MG TAB PO SCH (09:40)
[2016-09-13] MEDS: ENOXAPARIN 40 MG/0.4 ML SYG SC SCH (09:48)
[2016-09-13] MEDS ORDERED: SALINE 0.65% 45 ML NAS SPRAY NASAL PRN (16:30)
[2016-09-13] MEDS ORDERED: DIPHENHYDRAMINE 25 MG CAP PO PRN (16:30)
--- NOTE | 2016-09-13 17:18 | PN ---
Date/Time of Note Date/Time of Note DATE: 09/13/16 TIME: 17:11 Assessment/Plan VTE Prophylaxis VTE Prophylaxis Intervention: LMWH Lines/Catheters IV Catheter Type (from Nrs): Saline Lock Urinary Cath still in place: No Assessment/Plan Assessment/Plan 66 yo female with: 1. Left lower extremity cellulitis associated with cat bites: patient's LLE much better and at least 50% improvement since yesterday per patient and ID. Blood cx with Pasteurella On Vanco and Levaquin with plan to discharge home tomorrow on po Levaquin and Bactrim vs doxycycline per ID. Discussed with ID Pain control 2. Sepsis secondary to Pasteurella bacteremia, repeat blood cx negative. Continue current abx per ID 3. Hypertension. Well controlled for now Continue current meds 4. Morbid obesity with BMI of 46.1. 5. Mild lactic acidosis secondary to sepsis. Resolved 6. Chronic depression, stable on fluoxetine. Prophylaxis: Lovenox for DVT prophylaxis Disposition: d/c plan in 24 hrs for Home on po abx Subjective 24 Hr Interval Summary Free Text/Dictation Patient remains stable LLE cellulitis improved and stable Discussed with ID no need for IV abx at discharge so far, will convert to po regimen in the next 24 hrs Exam/Review of Systems Vital Signs Vitals Vital Signs Date Time Temp Pulse Resp B/P Pulse Ox O2 Delivery O2 Flow Rate FiO2 09/13/16 08:15 98.9 80 18 138/65 93 09/10/16 16:51 Room Air Intake and Output 09/12/16 09/12/16 09/13/16 15:00 23:00 07:00 Intake Total 500 ml 1090 ml 1700 ml Balance 500 ml 1090 ml 1700 ml Exam Constitutional: alert, obese, oriented, well developed Respiratory: clear to auscultation, normal air movement Cardiovascular: nl pulses, regular rate and rhythm Gastrointestinal: non-tender, soft Musculoskeletal: nl gait and stance, swelling (LLE improved and also erythema better ) Extremities: normal pulses Neurological: MARGIN CLERK II-XII intact, nl mental status, nl speech, nl strength Results Result Diagram: 09/13/1615 09/13/1615 Results 24 hrs Laboratory Tests Test 09/13/16 05:15 White Blood Count 6.1 Red Blood Count 4.05 L Hemoglobin 13.2 Hematocrit 41.5 Mean Corpuscular Volume 102.5 H Mean Corpuscular Hemoglobin 32.6 Mean Corpuscular Hemoglobin Concent 31.8 L Red Cell Distribution Width 13.1 Platelet Count 146 Mean Platelet Volume 9.4 Neutrophils % 62.2 Lymphocytes % 22.6 Monocytes % 9.9 Eosinophils % 4.3 Basophils % 0.5 Nucleated Red Blood Cells % 0.0 Neutrophils # 3.8 Lymphocytes # 1.4 Monocytes # 0.6 Eosinophils # 0.3 Basophils # 0.0 Nucleated Red Blood Cells # 0.0 Sodium Level 143 Potassium Level 4.3 Chloride Level 104 Carbon Dioxide Level 33 H Anion Gap 10 Blood Urea Nitrogen 12 Creatinine 0.80 Glucose Level 119 Calcium Level 9.1 Phosphorus Level 4.9 Magnesium Level 2.0 Medications Medications Current Medications Levofloxacin/ Dextrose (Levaquin 750 Mg/ D5W 150 ml (Pmx)) 150 ml @ 100 mls/hr Q24H IVPB Last administered on 09/12/16 18:04; Admin Dose 100 MLS/HR; Start at 18:00 Docusate Sodium (Colace) 100 mg BID PO Last administered on 09/12/16 08:45; Admin Dose 100 MG; Start 09/10/16 at 21:00 Enoxaparin Sodium (Lovenox) 40 mg DAILY SC Last administered on 09/13/16 09:48 ; Admin Dose 40 MG; Start 09/11/16 at 09:00 Famotidine (Pepcid) 20 mg BID PO Last administered on 09/13/16 09:40; Admin Dose 20 MG; Start 09/10/16 at 21:00 Ondansetron HCl (Zofran Inj) 4 mg Q6H PRN IV NAUSEA AND/OR VOMITING; Start 03/17 at 18:00 Morphine Sulfate 4 mg 4 mg Q4H PRN IV pain; Start 09/10/16 at 18:00 Vancomycin HCl/ Sodium Chloride (Vancocin/NS) 500 ml @ 125 mls/hr Q12H IVPB Last administered on 09/13/16 08:43; Admin Dose 125 MLS/HR; Start 09/10/16 at 20:00 Acetaminophen (Tylenol Tab) 650 mg Q6H PRN PO PAIN AND OR ELEVATED TEMP Last administered on 09/13/16 08:43; Admin Dose 650 MG; Start 09/10/16 at 21:00 Amlodipine Besylate (Norvasc) 5 mg DAILY PO Last administered on 09/13/16 09: 40; Admin Dose 5 MG; Start 09/11/16 at 17:00 Chlorthalidone (Hygroton) 25 mg DAILY PO Last administered on 09/11/16 17:51; Admin Dose 25 MG; Start 09/11/16 at 17:00 Fluoxetine HCl (Prozac) 20 mg BID PO Last administered on 09/13/16 09:40; Admin Dose 20 MG; Start 09/11/16 at 21:00 Losartan Potassium (Cozaar) 100 mg DAILY PO Last administered on 09/13/16 09: 40; Admin Dose 100 MG; Start 09/11/16 at 17:00 Guaifenesin/ Codeine Phosphate (Robitussin Ac Liquid Cup) 5 ml Q6H PRN PO COUGH Last administered on 09/12/16 02:38; Admin Dose 5 ML; Start 09/11/16 at 16:30 Miscellaneous Information (*Rx Drug Level Order Reminder*) 1 ONCE ONCE XX ; Start 09/14/16 at 07:00; Stop 09/14/16 at 07:01 Sodium Chloride (Deep Sea) 1 spray Q4 PRN NASAL NASAL CONGESTION; Start at 16:30 Diphenhydramine HCl (Benadryl) 25 mg Q6H PRN PO ITCHING; Start 09/13/16 at 16: 30 DANI HAYS Sep 13, 2016 17:18
[2016-09-13] MEDS: LEVOFLOXACIN 750MG/D5W (PMX) 150 ML IVPB SCH (17:43)
[2016-09-13 19:30] VITALS: BP 120/89; RESP 20
--- NOTE | 2016-09-13 20:34 | CONS ---
Date/Time of Note Date/Time of Note DATE: 09/13/16 TIME: 20:33 Assessment/Plan Assessment/Plan Chief Complaint/Hosp Course SUBJECTIVE: No acute changes. The patient is alert, looks comfortable. No fevers MICROBIOLOGY: Blood culture growing gram-negative rods. ANTIMICROBIALS: 1. Vancomycin. 2. Levaquin. PHYSICAL EXAMINATION: GENERAL: This is a morbidly obese elderly woman who is awake, in no distress. HEENT: Head atraumatic, normocephalic. Sclerae anicteric. Buccal mucosa pink. NECK: Supple. CHEST: Rise symmetrical. Breath sounds clear. HEART: S1, S2. ABDOMEN: Soft, bowel tones present. EXTREMITIES: With bilateral lower extremities edema, left lower extremity erythema, improved. ASSESSMENT: 1. Sepsis with fever, leukocytosis, tachycardia on admission. 2. Gram-negative tita bacteremia==> Pasteurella. 3. Left lower extremity cellulitis. 4. Morbid obesity. 5. History of bilateral knee replacement. PLAN: Continues to improve, repeat bld cx neg, ok dc on oral Levaquin and Doxycycline to complete 2 weeks abx DW staff Problems: Consultation Date/Type/Reason Admit Date/Time Sep 10, 2016 at 15:26 Type of Consultation: id Exam/Review of Systems Vital Signs Vitals Vital Signs Date Time Temp Pulse Resp B/P Pulse Ox O2 Delivery O2 Flow Rate FiO2 09/13/16 19:30 99.0 78 20 120/89 97 09/10/16 16:51 Room Air Intake and Output 09/12/16 09/12/16 09/13/16 15:00 23:00 07:00 Intake Total 500 ml 1090 ml 1700 ml Balance 500 ml 1090 ml 1700 ml Results Result Diagram: 09/13/16 0515 09/13/16 0515 Results 24 hrs Laboratory Tests Test 09/13/16 05:15 White Blood Count 6.1 Red Blood Count 4.05 L Hemoglobin 13.2 Hematocrit 41.5 Mean Corpuscular Volume 102.5 H Mean Corpuscular Hemoglobin 32.6 Mean Corpuscular Hemoglobin Concent 31.8 L Red Cell Distribution Width 13.1 Platelet Count 146 Mean Platelet Volume 9.4 Neutrophils % 62.2 Lymphocytes % 22.6 Monocytes % 9.9 Eosinophils % 4.3 Basophils % 0.5 Nucleated Red Blood Cells % 0.0 Neutrophils # 3.8 Lymphocytes # 1.4 Monocytes # 0.6 Eosinophils # 0.3 Basophils # 0.0 Nucleated Red Blood Cells # 0.0 Sodium Level 143 Potassium Level 4.3 Chloride Level 104 Carbon Dioxide Level 33 H Anion Gap 10 Blood Urea Nitrogen 12 Creatinine 0.80 Glucose Level 119 Calcium Level 9.1 Phosphorus Level 4.9 Magnesium Level 2.0 Medications Medications Current Medications Levofloxacin/ Dextrose (Levaquin 750 Mg/ D5W 150 ml (Pmx)) 150 ml @ 100 mls/hr Q24H IVPB Last administered on 09/13/16 17:43; Admin Dose 100 MLS/HR; Start at 18:00 Docusate Sodium (Colace) 100 mg BID PO Last administered on 09/12/16 08:45; Admin Dose 100 MG; Start 09/10/16 at 21:00 Enoxaparin Sodium (Lovenox) 40 mg DAILY SC Last administered on 09/13/16 09:48 ; Admin Dose 40 MG; Start 09/11/16 at 09:00 Famotidine (Pepcid) 20 mg BID PO Last administered on 09/13/16 09:40; Admin Dose 20 MG; Start 09/10/16 at 21:00 Ondansetron HCl (Zofran Inj) 4 mg Q6H PRN IV NAUSEA AND/OR VOMITING; Start 03/17 at 18:00 Morphine Sulfate 4 mg 4 mg Q4H PRN IV pain; Start 09/10/16 at 18:00 Vancomycin HCl/ Sodium Chloride (Vancocin/NS) 500 ml @ 125 mls/hr Q12H IVPB Last administered on 09/13/16 08:43; Admin Dose 125 MLS/HR; Start 09/10/16 at 20:00 Acetaminophen (Tylenol Tab) 650 mg Q6H PRN PO PAIN AND OR ELEVATED TEMP Last administered on 09/13/16 08:43; Admin Dose 650 MG; Start 09/10/16 at 21:00 Amlodipine Besylate (Norvasc) 5 mg DAILY PO Last administered on 09/13/16 09: 40; Admin Dose 5 MG; Start 09/11/16 at 17:00 Chlorthalidone (Hygroton) 25 mg DAILY PO Last administered on 09/11/16 17:51; Admin Dose 25 MG; Start 09/11/16 at 17:00 Fluoxetine HCl (Prozac) 20 mg BID PO Last administered on 09/13/16 09:40; Admin Dose 20 MG; Start 09/11/16 at 21:00 Losartan Potassium (Cozaar) 100 mg DAILY PO Last administered on 09/13/16 09: 40; Admin Dose 100 MG; Start 09/11/16 at 17:00 Guaifenesin/ Codeine Phosphate (Robitussin Ac Liquid Cup) 5 ml Q6H PRN PO COUGH Last administered on 09/12/16 02:38; Admin Dose 5 ML; Start 09/11/16 at 16:30 Miscellaneous Information (*Rx Drug Level Order Reminder*) 1 ONCE ONCE XX ; Start 09/14/16 at 07:00; Stop 09/14/16 at 07:01 Sodium Chloride (Deep Sea) 1 spray Q4 PRN NASAL NASAL CONGESTION Last administered on 09/13/16 17:43; Admin Dose 1 SPRAY; Start 09/13/16 at 16:30 Diphenhydramine HCl (Benadryl) 25 mg Q6H PRN PO ITCHING; Start 09/13/16 at 16: 30 ROSETTA HOLLIS NP Sep 13, 2016 20:34
[2016-09-14] MEDS: GUAIFENESIN/CODEINE 5ML CUP PO PRN (03:15)
[2016-09-14 08:15] LABS: ADD SCAN DIFF NO
[2016-09-14 08:27] LABS: BASOPHILS % 0.6 % (0.0-2.0); EOSINOPHILS # 0.3 10^3/ul (0.0-0.5); EOSINOPHILS % 4.3 % (0.0-7.0); HEMATOCRIT 40.8 % (37.0-47.0); HEMOGLOBIN 13.1 g/dl (12.0-16.0); LYMPHOCYTES # 1.3 10^3/ul (0.8-2.9); LYMPHOCYTES % 20.3 % (15.0-51.0); MEAN CORPUSCULAR HEMOGLOBIN 32.7 pg (29.0-33.0); MEAN CORPUSCULAR HGB CONC 32.1 g/dl (32.0-37.0); MEAN CORPUSCULAR VOLUME 101.7 fl (82.0-101.0); MEAN PLATELET VOLUME 9.5 fl (7.4-10.4); MONOCYTE # 0.7 10^3/ul (0.3-0.9); MONOCYTES % 10.1 % (0.0-11.0); NEUTROPHIL # 4.1 10^3/ul (1.6-7.5); NEUTROPHILS % 63.9 % (39.0-77.0); PLATELET COUNT 161 10^3/UL (140-415); RED BLOOD COUNT 4.01 10^6/ul (4.20-5.40); WHITE BLOOD COUNT 6.5 10^3/ul (4.8-10.8)
[2016-09-14 08:42] LABS: CALCIUM 9.2 mg/dl (8.4-10.2); CREATININE 0.59 mg/dl (0.44-1.00); PHOSPHORUS 5.2 mg/dl (2.5-4.9)
[2016-09-14] MEDS: VANCOMYCIN 2 GM in SOD CHLORIDE 0.9% 500 ML IVPB SCH (08:54)
[2016-09-14] MEDS: FAMOTIDINE 20 MG TAB PO SCH (08:56)
[2016-09-14] MEDS: DOCUSATE SODIUM 100 MG CAP PO SCH (08:56)
[2016-09-14] MEDS: LOSARTAN 50 MG TAB PO SCH (08:56)
[2016-09-14] MEDS: FLUOXETINE 20 MG CAP PO SCH (08:56)
[2016-09-14] MEDS: CHLORTHALIDONE 25 MG TAB PO SCH (08:56)
[2016-09-14] MEDS: AMLODIPINE 5 MG TAB PO SCH (08:57)
[2016-09-14 09:10] VITALS: BP 138/63; RESP 20
[2016-09-14] MEDS: ENOXAPARIN 40 MG/0.4 ML SYG SC SCH (09:32)
--- NOTE | 2016-09-14 12:57 | PN ---
Date/Time of Note Date/Time of Note DATE: 09/14/16 TIME: 12:50 Assessment/Plan VTE Prophylaxis VTE Prophylaxis Intervention: LMWH Lines/Catheters IV Catheter Type (from [facility] [place] Saline Lock Urinary Cath still in place: No Assessment/Plan Assessment/Plan 66 yo female with: 1. Left lower extremity cellulitis associated with cat bites: patient's LLE much better and at least 50% improvement since yesterday per patient and ID. Blood cx with Pasteurella, repeat blood cx NGTD Discussed with ID again and plan to d/c home with Doxycycline 100 mg po bid x 10 days and Levaquin 70 mg po daily x 10 days (total 14 days rx) with f/u with PCP and ID Keep LLE elevated and away from her cat 2. Sepsis secondary to Pasteurella bacteremia, repeat blood cx negative. Continue Levaquin for total of 14 days 3. Hypertension. Well controlled for now Continue current meds 4. Morbid obesity with BMI of 46.1. 5. Mild lactic acidosis secondary to sepsis. Resolved 6. Chronic depression, stable on fluoxetine. Prophylaxis: Lovenox for DVT prophylaxis Disposition: d/c Home today Subjective 24 Hr Interval Summary Free Text/Dictation Patient remains stable and no acute event D?c home today om po abx x 10 more days Exam/Review of Systems Vital Signs Vitals Vital Signs Date Time Temp Pulse Resp B/P Pulse Ox O2 Delivery O2 Flow Rate FiO2 09/14/16 09:10 98.2 68 20 138/63 93 09/10/16 16:51 Room Air Intake and Output 09/13/16 09/13/16 09/14/16 15:00 23:00 07:00 Intake Total 1310 ml 1200 ml Output Total 6 ml Balance 1304 ml 1200 ml Exam Constitutional: alert, oriented, well developed Respiratory: clear to auscultation, normal air movement Cardiovascular: nl pulses, regular rate and rhythm Gastrointestinal: non-tender, soft Musculoskeletal: other (Much improved LLE with less erythema and edema ) Extremities: normal pulses Neurological: EXTRACT MIXER II-XII intact, nl mental status, nl speech, nl strength Results Result Diagram: 09/14/16 0700 09/14/16 0700 Results 24 hrs Laboratory Tests Test 09/14/16 07:00 White Blood Count 6.5 Red Blood Count 4.01 L Hemoglobin 13.1 Hematocrit 40.8 Mean Corpuscular Volume 101.7 H Mean Corpuscular Hemoglobin 32.7 Mean Corpuscular Hemoglobin Concent 32.1 Red Cell Distribution Width 13.0 Platelet Count 161 Mean Platelet Volume 9.5 Neutrophils % 63.9 Lymphocytes % 20.3 Monocytes % 10.1 Eosinophils % 4.3 Basophils % 0.6 Nucleated Red Blood Cells % 0.0 Neutrophils # 4.1 Lymphocytes # 1.3 Monocytes # 0.7 Eosinophils # 0.3 Basophils # 0.0 Nucleated Red Blood Cells # 0.0 Sodium Level 142 Potassium Level 4.0 Chloride Level 105 Carbon Dioxide Level 29 Anion Gap 12 Blood Urea Nitrogen 13 Creatinine 0.59 Glucose Level 112 Calcium Level 9.2 Phosphorus Level 5.2 H Magnesium Level 2.0 Vancomycin Level Trough 15.4 Medications Medications Current Medications Docusate Sodium (Colace) 100 mg BID PO Last administered on 09/14/16 08:56; Admin Dose 100 MG; Start 09/10/16 at 21:00 Enoxaparin Sodium (Lovenox) 40 mg DAILY SC Last administered on 09/14/16 09:32 ; Admin Dose 40 MG; Start 09/11/16 at 09:00 Famotidine (Pepcid) 20 mg BID PO Last administered on 09/14/16 08:56; Admin Dose 20 MG; Start 09/10/16 at 21:00 Ondansetron HCl (Zofran Inj) 4 mg Q6H PRN IV NAUSEA AND/OR VOMITING; Start 03/17 at 18:00 Morphine Sulfate (morphine) 4 mg Q4H PRN IV pain; Start 09/10/16 at 18:00 Acetaminophen (Tylenol Tab) 650 mg Q6H PRN PO PAIN AND OR ELEVATED TEMP Last administered on 09/13/16 08:43; Admin Dose 650 MG; Start 09/10/16 at 21:00 Amlodipine Besylate (Norvasc) 5 mg DAILY PO Last administered on 09/14/16 08: 57; Admin Dose 5 MG; Start 09/11/16 at 17:00 Chlorthalidone (Hygroton) 25 mg DAILY PO Last administered on 09/14/16 08:56; Admin Dose 25 MG; Start 09/11/16 at 17:00 Fluoxetine HCl (Prozac) 20 mg BID PO Last administered on 09/14/16 08:56; Admin Dose 20 MG; Start 09/11/16 at 21:00 Losartan Potassium (Cozaar) 100 mg DAILY PO Last administered on 09/14/16 08: 56; Admin Dose 100 MG; Start 09/11/16 at 17:00 Guaifenesin/ Codeine Phosphate (Robitussin Ac Liquid Cup) 5 ml Q6H PRN PO COUGH Last administered on 09/14/16 03:15; Admin Dose 5 ML; Start 09/11/16 at 16:30 Sodium Chloride (Deep Sea) 1 spray Q4 PRN NASAL NASAL CONGESTION Last administered on 09/13/16 17:43; Admin Dose 1 SPRAY; Start 09/13/16 at 16:30 Diphenhydramine HCl (Benadryl) 25 mg Q6H PRN PO ITCHING; Start 09/13/16 at 16: 30 Doxycycline Hyclate (Vibramycin) 100 mg BID PO ; Start 09/14/16 at 13:00 DANI HAYS Sep 14, 2016 12:57
--- NOTE | 2016-09-14 12:59 | PDOCDIS ---
Discharge Instructions CONDITION Patient Condition: Stable HOME CARE INSTRUCTIONS: Special Diet: low fat /low carb diet ACTIVITY: Activity Restrictions: Slowly Increase Activity Keep Limb Elevated (LLE) FOLLOW UP/APPOINTMENTS Appointments Follow up with PCP in 1 week Referral to Infectious Disease through [facility] for follow up Left leg cellulitis in 1 to 2 weeks SCHOOL/WORK RELEASE May return to School/Work on: Sep 25, 2016 DANI HAYS Sep 14, 2016 12:59
[2016-09-14] MEDS ORDERED: DOXYCYCLINE 100 MG TAB PO SCH (13:00)
[2016-09-14] MEDS ORDERED: LEVOFLOXACIN 750 MG TABLET PO SCH (13:00)
[2016-09-14] MEDS ORDERED: DOXY100T2 PO (13:01)
[2016-09-14] MEDS ORDERED: LEVO750T25 PO (13:01)
[2016-09-14] MEDS ORDERED: LACT1CAP57 PO (13:01)
--- NOTE | 2016-09-14 21:13 | CONS ---
Date/Time of Note Date/Time of Note DATE: 09/14/16 TIME: 21:13 Assessment/Plan Assessment/Plan Chief Complaint/Hosp Course SUBJECTIVE: No acute changes. The patient is alert, feels better, nad. No fevers MICROBIOLOGY: Blood culture growing gram-negative rods. ANTIMICROBIALS: 1. Vancomycin. 2. Levaquin. PHYSICAL EXAMINATION: GENERAL: This is a morbidly obese elderly woman who is awake, in no distress. HEENT: Head atraumatic, normocephalic. Sclerae anicteric. Buccal mucosa pink. NECK: Supple. CHEST: Rise symmetrical. Breath sounds clear. HEART: S1, S2. ABDOMEN: Soft, bowel tones present. EXTREMITIES: With bilateral lower extremities edema, left lower extremity erythema, improved. ASSESSMENT: 1. S/p sepsis with fever, leukocytosis, tachycardia on admission. 2. Gram-negative tita bacteremia==> Pasteurella. 3. Left lower extremity cellulitis. 4. Morbid obesity. 5. History of bilateral knee replacement. PLAN: Continues to improve, repeat bld cx neg, ok dc on oral Levaquin and Doxycycline to complete 2 weeks abx DW staff DW pt Problems: Consultation Date/Type/Reason Admit Date/Time Sep 10, 2016 at 15:26 Type of Consultation: id Exam/Review of Systems Vital Signs Vitals Vital Signs Date Time Temp Pulse Resp B/P Pulse Ox O2 Delivery O2 Flow Rate FiO2 09/14/16 09:10 98.2 68 20 138/63 93 09/10/16 16:51 Room Air Intake and Output 09/13/16 09/13/16 09/14/16 15:00 23:00 07:00 Intake Total 1310 ml 1200 ml Output Total 6 ml Balance 1304 ml 1200 ml Results Result Diagram: 09/14/16 0700 09/14/16 0700 Results 24 hrs Laboratory Tests Test 09/14/16 07:00 White Blood Count 6.5 Red Blood Count 4.01 L Hemoglobin 13.1 Hematocrit 40.8 Mean Corpuscular Volume 101.7 H Mean Corpuscular Hemoglobin 32.7 Mean Corpuscular Hemoglobin Concent 32.1 Red Cell Distribution Width 13.0 Platelet Count 161 Mean Platelet Volume 9.5 Neutrophils % 63.9 Lymphocytes % 20.3 Monocytes % 10.1 Eosinophils % 4.3 Basophils % 0.6 Nucleated Red Blood Cells % 0.0 Neutrophils # 4.1 Lymphocytes # 1.3 Monocytes # 0.7 Eosinophils # 0.3 Basophils # 0.0 Nucleated Red Blood Cells # 0.0 Sodium Level 142 Potassium Level 4.0 Chloride Level 105 Carbon Dioxide Level 29 Anion Gap 12 Blood Urea Nitrogen 13 Creatinine 0.59 Glucose Level 112 Calcium Level 9.2 Phosphorus Level 5.2 H Magnesium Level 2.0 Vancomycin Level Trough 15.4 ROSETTA HOLLIS NP Sep 14, 2016 21:13
== END 2016-09-14 16:00 | disposition home or self-care (01) | DRG 867 ==
LOC: E/R 13:04 → MS2 15:26
PROVIDERS: ADMIT Internal Medicine; ATTEND Internal Medicine
DX: A28.0 Pasteurellosis (principal); R65.20 Severe sepsis without septic shock; E87.2 Acidosis; Z68.42 Body mass index [BMI] 45.0-49.9, adult; L03.116 Cellulitis of left lower limb; E66.01 Morbid (severe) obesity due to excess calories; F32.9 Major depressive disorder, single episode, unspecified; I10 Essential (primary) hypertension; Z96.653 Presence of artificial knee joint, bilateral
CPT/HCPCS: 36415; 71010; 80048; 80053; 80061; 80202; 81003; 83036; 83605; 83735; 84100; 84443; 84484; 85025; 85610; 85730; 87040; 87086; 93005; 93971; 96365; 96375; J0456; J1650; J1956; J3370; J7040

== ENCOUNTER 2017-09-14 11:20 | Emergency (ER) | END 2017-09-14 14:45 | disposition home or self-care (01) ==